=== PATIENT | female | born 1935 | race Caucasian/White ===

== ENCOUNTER 2017-11-03 16:25 | Emergency (ER) | payer OTHER ==
[~2017-11-03] VITALS: Ht 160 cm; Wt 86.7 kg
[~2017-11-03 16:25] MED LIST: ALDOMET500 MG PO; ASPIR 8181 M1 PO; ASPIR-LOW81 MG PO; CIPRO500 MG PO; DOXYCYCLINE HY100 M3 PO; FLAGYL500 MG PO; HYDROCHLOROTHIA25 MG PO; HYDROCODON-ACE1 EAC7 PO; LIPITOR20 MG PO; LISINOPRIL10 MG PO; MURO-128 OPHTH3.5 GM BOTH EYES; NORVASC5 MG PO; PREVACID30 MG PO; SYNTHROID75 MCG PO; SYSTANE ULTRA 015 ML BOTH EYES; VALIUM5 MG PO; ZOFRAN4 MG PO
[2017-11-03 17:17] LABS: HEMOGLOBIN 14.2 G/DL (11.9-15.5); MCH 31.7 PG (29.0-34.0); MCHC 34.6 G/DL (30.0-36.0); MCV 91.5 FL (83-99); PLATELET COUNT 272 K/uL (156-360); RBC DIS.WIDTH-CV 13.1 % (11.8-14.6); RBC DIS.WIDTH-SD 43.6 % (39-53); RED BLOOD COUNT 4.48 M/uL (3.80-5.20); WHITE BLOOD COUNT 7.2 K/uL (4.1-10.2)
[2017-11-03 17:25] LABS: CHLORIDE 99 mEq/L (99-109)
[2017-11-03 17:26] LABS: POTASSIUM 3.3 mEq/L (3.7-5.4); SODIUM 137 mEq/L (136-147)
[2017-11-03 17:27] LABS: GLUCOSE 145 mg/dL (70-99)
[2017-11-03 17:31] LABS: CREATININE 1.1 mg/dL (0.6-1.3); GFR ESTIMATE (CALCULATED) 51 mL/min/
[2017-11-03 17:32] LABS: UREA NITROGEN (BUN) 13 mg/dL (9-23)
[2017-11-03 17:40] LABS: TROP-I INTERPRETATION NEGATIVE; TROPONIN-I < 0.01 ng/mL (0.0-0.30)
[2017-11-03 18:22] LABS: APPEARANCE SL.HAZY ((CLEAR)); BILIRUBIN NEGATIVE; BLOOD MODERATE; COLOR YELLOW ((YELLOW)); GLUCOSE (STRIP) NEGATIVE; KETONES NEGATIVE; LEUKOCYTES MODERATE; NITRITE NEGATIVE; PROTEIN (STRIP) NEGATIVE; SPECIFIC GRAVITY 1.015 (1.000-1.030); UROBILINOGEN 0.2 MG/DL (0.2-1.0)
[2017-11-03 18:35] LABS: BACTERIA NONE SEEN /HPF; EPITHELIAL CELLS 3+ /HPF; HYALINE CASTS 0-5 /LPF; MUCUS TRACE /LPF; UCUL ADDED? YES; WHITE BLOOD CELLS 40-50 /HPF (0-5)
[2017-11-03] MEDS ORDERED: BACTRIM,SEPT1 TABLET PO (19:01)
[2017-11-03 19:37] VITALS: BP 117/62
== END 2017-11-03 19:50 | disposition home or self-care (01) ==
LOC: EME 16:25
PROVIDERS: Emergency Medicine
DX: N39.0 Urinary tract infection, site not specified (principal); E86.0 Dehydration; E03.9 Hypothyroidism, unspecified; I10 Essential (primary) hypertension; E78.5 Hyperlipidemia, unspecified; K21.9 Gastro-esophageal reflux disease without esophagitis; E11.9 Type 2 diabetes mellitus without complications; Z87.442 Personal history of urinary calculi; Z90.49 Acquired absence of other specified parts of digestive tract; Z90.710 Acquired absence of both cervix and uterus; Z88.0 Allergy status to penicillin; Z88.5 Allergy status to narcotic agent
CPT/HCPCS: 71046; 80048; 81003; 84484; 85027; 87086; 93005; J7030